=== PATIENT | female | born 1995 | race Hispanic/Latino ===

== ENCOUNTER 2023-10-16 12:56 | Inpatient (IN) | payer SELFPAY ==
[~2023-10-16 12:56] MED LIST: Iopamidol-370 76% 500 ML MDV (1 ML CHARGE) ONE
[2023-10-16] MEDS ORDERED: Naloxone HCl 0.4 mg/ml Vial ONE (13:28)
[2023-10-16 13:59] LABS: #Basophils 0.03 10x3/uL (0.0-0.2); %Basophils 0.3 % (0.0-1.0); %Eosinophils 1.3 % (0.0-10.0); %Lymphocytes 20.3 % (21.0-51.0); %Monocytes 8.1 % (0.0-10.0); %Neutrophils 69.8 % (42.0-75.0); Hematocrit 29.3 % (36.0-47.0); Hemoglobin 9.2 g/dL (12.0-16.0); Mean Corpuscular HGB CONC 31.4 g/dL (32.0-36.0); Mean Corpuscular Hemoglobin 23.1 pg (27.0-31.0); Mean Corpuscular Volume 73.6 fL (78.0-98.0); Mean Platelet Volume 8.5 fL (7.4-10.4); Platelet Count 392 10x3/uL (130-400); RBC Distribution Width 15.9 % (11.5-14.5); Red Blood Cell (RBC) Count 3.98 mill/uL (4.20-5.40)
[2023-10-16] MEDS ORDERED: Morphine 4 MG/ML VIAL ONE (14:05)
[2023-10-16] MEDS ORDERED: Ondansetron PF 4 MG/2 ML Vial ONE (14:05)
[2023-10-16 14:06] LABS: BHCG - Serum Negative (NEGATIVE); Pregs Control Background? CLEAR/WHITE (CLR/WHITE); Pregs Control Bar Appear? YES (CONTROL BAR)
[2023-10-16 14:10] LABS: Lipase 22 U/L (8-78)
[2023-10-16 14:12] LABS: Acetaminophen Less than 10 mcg/mL (10.0-30.0); Alcohol Less than 10.0 mg/dL (Less than 10); Salicylate Less than 8.0 mg/dL (15.0-30.0)
[2023-10-16 14:14] LABS: ALT (SGPT) 13 U/L (8-55); AST (SGOT) 23 U/L (5-34); Albumin 3.3 g/dL (3.5-5.0); Alkaline Phosphatase 78 U/L (40-110); Anion Gap 10 mmol/L (10-20); BUN (Urea Nitrogen) 10 mg/dL (7.0-18.7); Bilirubin, Total 0.2 mg/dL (0.2-1.2); Calc. Creatinine Clearance 0 mL/min (70-130); Carbon Dioxide 22 mmol/L (22-29); Chloride 110 mmol/L (98-107); Estimated GFR 120; Globulin 3.6 g/dL (2.4-3.5); Glucose 73 mg/dL (70-105); Potassium 3.8 mmol/L (3.5-5.1); Protein, Total 6.9 g/dL (6.0-8.3); Sodium 138 mmol/L (136-145)
[2023-10-16 14:20] LABS: Burr Cells SLIGHT = 2-5 cells HPF (0-1); Microcytosis SLIGHT = 6-15 cells HPF (0-5); Ovalocytes SLIGHT = 2-5 cells HPF (0-1); Platelet Adequacy Comment Platelets Normal; Polychromasia SLIGHT = 2-3 cells HPF (0-2)
[2023-10-16 14:50] LABS: Troponin I Less than 0.010 ng/mL (< 0.028)
[2023-10-16 15:03] LABS: Bacteria/HPF None Seen HPF (None Seen); Bilirubin Negative (Negative); Blood, Urine Trace (Negative); CAUTI Indications for Culture Dysuria,urgency,freq; Clarity Clear (Clear); Glucose, Urine (Dipstick) Normal (Negative); Ketone, Urine Negative (Negative); Leukocyte 75 Leu/uL (Negative); Nitrite Negative (Negative); Protein, Urine (Dipstick) Negative (Neg-Trace); RBC/HPF 0-3 HPF (0-3); Specific Gravity, Urine 1.025 (1.002-1.036); Urobilinogen Normal mg/dL (Less than 2)
[2023-10-16 15:07] LABS: Urine Culture Reflex No No
[2023-10-16 15:10] LABS: Amphetamine Not Detected (NotDetected); Barbiturates Screen Not Detected (NotDetected); Benzodiazepine Screen Not Detected (NotDetected); Cocaine Metabolite Screen Not Detected (NotDetected); Methadone Not Detected (NotDetected); Methamphetamine Not Detected (NotDetected); Opiate Screen Detected (NotDetected); Oxycodone Screen Not Detected (NotDetected); Phencyclidine (PCP) Not Detected (NotDetected); THC/Cannabinoid Screen Not Detected (NotDetected); Tricyclic Screen Not Detected (NotDetected)
[2023-10-16] MEDS ORDERED: methylPREDNISolone Sod Succ/PF 125 MG/2 ML VIAL ONE (18:04)
[2023-10-16] MEDS ORDERED: Fioricet 325/50/40 mg Tablet PO PRN (19:38)
[2023-10-16 19:58] LABS: Iron 7 ug/dL (50-170); Iron Binding Capacity, Total 308 mcg/dL (265-497)
[2023-10-16 20:22] LABS: Troponin I 0.012 ng/mL (< 0.028)
[2023-10-16] MEDS ORDERED: traMADol HCl 50 MG TAB ONE (21:47)
[2023-10-16] MEDS ORDERED: Famotidine 20 MG TAB ONE (21:47)
[2023-10-16] MEDS: Sodium Ferric Gluconate 125 MG in Sodium Chloride 0.9% 100 ML IVPB SCH (21:54)
[2023-10-16] MEDS: Famotidine 20 MG TAB PO SCH (21:54)
[2023-10-16] MEDS: traMADol HCl 50 MG TAB PO PRN (21:55)
[2023-10-16] MEDS: Sodium Chloride 0.9% 1,000 ML IV SCH (21:55)
[2023-10-16] MEDS: Famotidine/PF 20 mg/2ml Vial SLOW IVP SCH (21:57)
[2023-10-16] MEDS ORDERED: metroNIDAZOLE 500 MG in Premix 1 BAG IVPB SCH (22:00)
[2023-10-16] MEDS ORDERED: metroNIDAZOLE 500 MG (100 mL) BAG ONE (23:23)
[2023-10-16] MEDS: metroNIDAZOLE 500 MG in Premix 1 BAG IVPB SCH (23:32)
[2023-10-17 04:17] LABS: #Basophils Less than 0.03 10x3/uL (0.0-0.2); #Eosinphils Less than 0.03 10x3/uL (0.0-0.7); %Basophils 0.1 % (0.0-1.0); %Lymphocytes 11.1 % (21.0-51.0); %Monocytes 0.5 % (0.0-10.0); %Neutrophils 87.8 % (42.0-75.0); Hematocrit 31.4 % (36.0-47.0); Hemoglobin 9.5 g/dL (12.0-16.0); Mean Corpuscular HGB CONC 30.3 g/dL (32.0-36.0); Mean Corpuscular Hemoglobin 22.1 pg (27.0-31.0); Mean Platelet Volume 8.7 fL (7.4-10.4); Platelet Count 413 10x3/uL (130-400); RBC Distribution Width 16.1 % (11.5-14.5)
[2023-10-17 04:35] LABS: Anion Gap 11 mmol/L (10-20); BUN (Urea Nitrogen) 8 mg/dL (7.0-18.7); Calc. Creatinine Clearance 163 mL/min (70-130); Calcium 8.7 mg/dL (7.8-10.44); Carbon Dioxide 19 mmol/L (22-29); Chloride 110 mmol/L (98-107); Estimated GFR 123; Glucose 148 mg/dL (70-105); Sodium 136 mmol/L (136-145)
[2023-10-17] MEDS ORDERED: metroNIDAZOLE 500 MG (100 mL) BAG ONE ×2 (05:58→13:56)
[2023-10-17] MEDS ORDERED: Enoxaparin 40 MG (0.4 mL) SYRINGE ONE (08:16)
[2023-10-17] MEDS ORDERED: methylPREDNISolone Sod Succ 40 MG VIAL ONE ×2 (08:16→08:18)
[2023-10-17] MEDS ORDERED: Famotidine 20 MG TAB ONE (08:16)
[2023-10-17] MEDS: methylPREDNISolone Sod Succ 40 MG VIAL IVP SCH ×2 (09:29→18:39)
[2023-10-17] MEDS: Enoxaparin 40 MG (0.4 mL) SYRINGE SC SCH (09:30)
[2023-10-17 10:27] VITALS: BMI 29.2
[2023-10-17] MEDS ORDERED: Morphine 4 MG/ML VIAL SLOW IVP PRN (13:14)
[2023-10-17] MEDS ORDERED: Morphine 2 MG/ML VIAL SLOW IVP PRN (13:14)
[2023-10-17] MEDS ORDERED: Acetaminophen 325 MG TAB ONE (13:57)
[2023-10-17] MEDS: Acetaminophen 650 MG Suppository PR PRN (14:02)
[2023-10-17] MEDS: Lactated Ringer's 1,000 ML IV SCH (18:39)
[2023-10-17] MEDS: LevoFLOXacin 500 mg/D5W 500 MG in Premix 1 BAG IVPB SCH (18:39)
[2023-10-17 22:59] LABS: Hep C IgG Ab NONREACTIVE S/CO (NonReactive); Hep C Index 0.11 S/CO (0-0.79)
[2023-10-17] MEDS: Ondansetron PF 4 MG/2 ML Vial IVP PRN (23:18)
[2023-10-18 04:53] LABS: #Basophils Less than 0.03 10x3/uL (0.0-0.2); #Eosinphils Less than 0.03 10x3/uL (0.0-0.7); %Basophils 0.1 % (0.0-1.0); %Lymphocytes 9.5 % (21.0-51.0); %Monocytes 2.5 % (0.0-10.0); %Neutrophils 87.5 % (42.0-75.0); Hematocrit 28.4 % (36.0-47.0); Hemoglobin 8.7 g/dL (12.0-16.0); Mean Corpuscular HGB CONC 30.6 g/dL (32.0-36.0); Mean Corpuscular Hemoglobin 22.4 pg (27.0-31.0); Mean Platelet Volume 8.7 fL (7.4-10.4); Platelet Count 470 10x3/uL (130-400); RBC Distribution Width 16.2 % (11.5-14.5); Red Blood Cell (RBC) Count 3.89 mill/uL (4.20-5.40)
[2023-10-18 05:10] LABS: ALT (SGPT) 9 U/L (8-55); AST (SGOT) 8 U/L (5-34); Albumin 2.9 g/dL (3.5-5.0); Alkaline Phosphatase 68 U/L (40-110); Anion Gap 13 mmol/L (10-20); BUN (Urea Nitrogen) 11 mg/dL (7.0-18.7); Bilirubin, Total 0.2 mg/dL (0.2-1.2); Calc. Creatinine Clearance 167 mL/min (70-130); Calcium 8.6 mg/dL (7.8-10.44); Carbon Dioxide 21 mmol/L (22-29); Chloride 110 mmol/L (98-107); Estimated GFR 123; Globulin 3.3 g/dL (2.4-3.5); Glucose 133 mg/dL (70-105); Protein, Total 6.2 g/dL (6.0-8.3); Sodium 140 mmol/L (136-145)
[2023-10-18 05:36] LABS: Vitamin B12 289 pg/mL (211-911)
[2023-10-18] MEDS: Pantoprazole 40 MG VIAL IVP SCH (09:37)
[2023-10-18 10:52] LABS: HBSAB Concentration 15.46 mIU/mL; HBsAg Index 0.26 S/CO (0-0.99); Hep B Surf AB REACTIVE (NonReactive); Hep B Surf Ag NONREACTIVE S/CO (NonReactive); Vitamin D, 25 Hydroxy 21.6 ng/ml (> 30.0)
[2023-10-18 11:15] LABS: CRP,High Sensitivity (Inhouse) 3.88 mg/dL (< or = 0.5); Syphilis Antibody Nonreactive (Nonreactive); Syphilis Antibody Index 0.05 S/CO (<1.00 Non-Reactive)
[2023-10-18] MEDS: Acetaminophen 325 MG TAB PO PRN (11:47)
[2023-10-18] MEDS: Polyethylene Glycol 3350 17 GM Packet PO PRN (21:47)
[2023-10-19 05:32] LABS: #Basophils Less than 0.03 10x3/uL (0.0-0.2); #Eosinphils Less than 0.03 10x3/uL (0.0-0.7); %Basophils 0.1 % (0.0-1.0); %Lymphocytes 10.7 % (21.0-51.0); %Monocytes 2.6 % (0.0-10.0); Hematocrit 27.7 % (36.0-47.0); Hemoglobin 8.7 g/dL (12.0-16.0); Mean Corpuscular HGB CONC 31.4 g/dL (32.0-36.0); Mean Corpuscular Hemoglobin 22.5 pg (27.0-31.0); Mean Corpuscular Volume 71.6 fL (78.0-98.0); Mean Platelet Volume 8.8 fL (7.4-10.4); Platelet Count 463 10x3/uL (130-400); RBC Distribution Width 16.2 % (11.5-14.5); Red Blood Cell (RBC) Count 3.87 mill/uL (4.20-5.40)
[2023-10-19 05:46] LABS: ALT (SGPT) 5 U/L (8-55); AST (SGOT) 8 U/L (5-34); Alkaline Phosphatase 64 U/L (40-110); Anion Gap 11 mmol/L (10-20); BUN (Urea Nitrogen) 9 mg/dL (7.0-18.7); Bilirubin, Total 0.1 mg/dL (0.2-1.2); Calc. Creatinine Clearance 160 mL/min (70-130); Calcium 8.5 mg/dL (7.8-10.44); Carbon Dioxide 24 mmol/L (22-29); Chloride 108 mmol/L (98-107); Estimated GFR 121; Globulin 3.2 g/dL (2.4-3.5); Glucose 131 mg/dL (70-105); Protein, Total 6.2 g/dL (6.0-8.3); Sodium 139 mmol/L (136-145)
[2023-10-19] MEDS: GoLYTELY 4,000 ml Bottle PO SCH (10:24)
[2023-10-20 05:38] LABS: #Basophils Less than 0.03 10x3/uL (0.0-0.2); #Eosinphils Less than 0.03 10x3/uL (0.0-0.7); %Basophils 0.1 % (0.0-1.0); %Lymphocytes 20.2 % (21.0-51.0); %Monocytes 5.2 % (0.0-10.0); %Neutrophils 73.7 % (42.0-75.0); Hematocrit 30.1 % (36.0-47.0); Hemoglobin 9.2 g/dL (12.0-16.0); Mean Corpuscular HGB CONC 30.6 g/dL (32.0-36.0); Mean Corpuscular Hemoglobin 22.1 pg (27.0-31.0); Mean Corpuscular Volume 72.2 fL (78.0-98.0); Mean Platelet Volume 8.4 fL (7.4-10.4); Platelet Count 487 10x3/uL (130-400); RBC Distribution Width 16.3 % (11.5-14.5); Red Blood Cell (RBC) Count 4.17 mill/uL (4.20-5.40)
[2023-10-20 06:07] LABS: ALT (SGPT) 6 U/L (8-55); AST (SGOT) 13 U/L (5-34); Albumin 3.1 g/dL (3.5-5.0); Alkaline Phosphatase 59 U/L (40-110); Anion Gap 10 mmol/L (10-20); BUN (Urea Nitrogen) 11 mg/dL (7.0-18.7); Bilirubin, Total 0.1 mg/dL (0.2-1.2); Calc. Creatinine Clearance 148 mL/min (70-130); Calcium 8.6 mg/dL (7.8-10.44); Carbon Dioxide 27 mmol/L (22-29); Chloride 107 mmol/L (98-107); Estimated GFR 119; Globulin 2.9 g/dL (2.4-3.5); Glucose 117 mg/dL (70-105); Sodium 140 mmol/L (136-145)
[2023-10-20 06:58] LABS: Campy jejuni + coli by PCR Negative (Negative); STEC Shiga Toxin 1+2 Negative (Negative); Salmonella spp. by PCR Negative (Negative); Shigella spp + EIEC by PCR Negative (Negative)
[2023-10-20] MEDS ORDERED: Lidocaine 2% PF 5 ML VIAL ONE (08:40)
[2023-10-20] MEDS ORDERED: PROPOFOL 40 ML ONE (08:40)
[2023-10-20] MEDS ORDERED: PROPOFOL 20 ML ONE (09:49)
[2023-10-20] MEDS ORDERED: fentaNYL PF 100 MCG/2 ML SYRINGE ONE (09:51)
[2023-10-21 06:02] LABS: #Basophils Less than 0.03 10x3/uL (0.0-0.2); #Eosinphils Less than 0.03 10x3/uL (0.0-0.7); %Basophils 0.1 % (0.0-1.0); %Lymphocytes 18.9 % (21.0-51.0); %Monocytes 7.1 % (0.0-10.0); %Neutrophils 72.8 % (42.0-75.0); Hematocrit 30.6 % (36.0-47.0); Hemoglobin 9.5 g/dL (12.0-16.0); Mean Corpuscular Hemoglobin 22.9 pg (27.0-31.0); Mean Corpuscular Volume 73.7 fL (78.0-98.0); Mean Platelet Volume 8.3 fL (7.4-10.4); Platelet Count 494 10x3/uL (130-400); RBC Distribution Width 16.4 % (11.5-14.5); Red Blood Cell (RBC) Count 4.15 mill/uL (4.20-5.40)
[2023-10-21 06:20] LABS: ALT (SGPT) 9 U/L (8-55); AST (SGOT) 15 U/L (5-34); Albumin 3.1 g/dL (3.5-5.0); Alkaline Phosphatase 58 U/L (40-110); Anion Gap 11 mmol/L (10-20); BUN (Urea Nitrogen) 13 mg/dL (7.0-18.7); Bilirubin, Total 0.1 mg/dL (0.2-1.2); Calc. Creatinine Clearance 146 mL/min (70-130); Calcium 8.6 mg/dL (7.8-10.44); Carbon Dioxide 25 mmol/L (22-29); Chloride 105 mmol/L (98-107); Estimated GFR 117; Glucose 103 mg/dL (70-105); Potassium 4.2 mmol/L (3.5-5.1); Protein, Total 6.1 g/dL (6.0-8.3); Sodium 137 mmol/L (136-145)
[2023-10-21 15:10] VITALS: BP 112/80; TEMP 98.4
[2023-10-22 16:41] LABS: QuantiFERON-TB Gold Plus Indeterminate (Negative)
== END 2023-10-21 20:05 | disposition home or self-care (01) | DRG 387 ==
LOC: ERS 12:56 → ERHOLD 17:40 → EDBD 17:40 → 2NO 10-17 15:38 → SJJU 10-19 20:06
PROVIDERS: ADMIT Internal Medicine; ATTEND Family Medicine
PROC: 0DBC8ZX Excision of Ileocecal Valve, Via Natural or Artificial Opening Endoscopic, Diagnostic (ICD-10-PCS; principal; 2023-10-20)
DX: K50.00 Crohn's disease of small intestine without complications (principal); D50.9 Iron deficiency anemia, unspecified; G43.909 Migraine, unspecified, not intractable, without status migrainosus; K64.8 Other hemorrhoids; Z79.899 Other long term (current) drug therapy; E55.9 Vitamin D deficiency, unspecified; Z90.49 Acquired absence of other specified parts of digestive tract; E86.0 Dehydration
CPT/HCPCS: 36415; 70450; 71045; 74177; 80048; 80053; 80306; 80307; 81001; 82274; 82306; 82607; 82728; 83540; 83550; 83605; 83690; 83735; 84146; 84443; 84484; 84703; 85025; 86141; 86480; 86706; 86780; 86803; 87340; 87505; 88305; 93005; 93306; 96361; 96374; 96375; C9113; J1650; J1956; J2001; J2270; J2310; J2405; J2704; J2916; J2920; J2930; J3490; J7050; J7120; Q9967